=== PATIENT | male | born 1980 | race Two or more races ===

== ENCOUNTER → 2017-02-13 | Outpatient (CLI) | payer BC ==
[2017-02-13 16:56] LABS: LYMPH # 1.3 K/mm3 (0.7-4.5); LYMPH % 44.5 % (10-50)
[2017-02-13 18:21] LABS: BUN 19 mg/dL (7-18)
[2017-02-13 18:23] LABS: GFR (ESTIMATED) 85 ML/MIN (>60)
[2017-02-13 23:56] LABS: NEUTROPHILS 46 % (42-76)
[2017-02-15 09:38] LABS: Vitamin D, 25-Hydroxy 30.7 ng/mL (30.0-100.0)
[2017-02-15 10:39] LABS: Folate (Folic Acid) 15.3 ng/mL (>3.0)
== END ==
LOC: LAB 15:53
PROVIDERS: Physician Assistant
DX: Z00.00 Encounter for general adult medical examination without abnormal findings (principal)